=== PATIENT | male | born 1985 | race Two or more races ===

== ENCOUNTER 2016-06-26 08:45 | Emergency (ER) | payer SELFPAY ==
[2016-06-26 09:18] VITALS: RESP 15; TEMP 97.7
[2016-06-26] MEDS ORDERED: HYDROcodone-APAP 5 MG -325 MG TABLET PO ONE (09:28)
--- NOTE | 2016-06-26 09:34 | PDOC ---
Hand / Wrist Injury HPI - General Chief Complaint: Upper Extremity Problem/Injury Stated Complaint: RIGHT HAND/WRIST PAIN, S/P SURGERY 03/2017 Date Seen by Provider: 06/26/16 Time Seen by Provider: 09:29 Source: POSITIVE: Patient Exam Limitations: POSITIVE: No limitations Nurse's Notes Reviewed & Considered: Yes - Record Incomplete - History of Present Illness Have you received a tetanus shot in the past 10 years?: Yes Body Location Affected: REPORTS: Upper Extremity (R) Timing: REPORTS: Constant Duration: Unknown Severity: Moderate Context: REPORTS: Other (Status post ORIF right wrist) Location of Injury: REPORTS: Right, Wrist Quality: REPORTS: "Pain", Throbbing, Tenderness Modifying Factors: REPORTS: Movement, Rest Associated Symptoms: REPORTS: Loss of Power Any Prior Injuries Related to Current Complaint?: Yes (wrist fracture, ORIF right wrist.) - Patient Home Medications Home Medications: Home Medications Ibuprofen [Motrin Tab] 800 mg PO Q6H PRN 01/05/15 - Patient Allergies Allergies/Adverse Reactions: Allergies Allergy/AdvReac Type Severity Reaction Status Date / Time No Known Allergies Allergy Verified 06/26/16 08:52 Past Medical History - heen HEENT History: Denies History Cardiovascular History: Denies History Respiratory History: Denies History Additional Respiratory History: chronic tobacco abuse Gastrointestinal History: Other (please comment) Additional Gastrointestinal History: 2 yr hx on/off abd pain. denies dx but then states one Dr in [place] told him it was IBS Genitourinary History: Denies History Endocrine History: Denies History Musculoskeletal History: Denies History Prosthesis or Implant: No Neurological History: Denies History Blood Disorders: Denies History Psychiatric History: Denies History History of Sexually Transmitted Diseases: No Cancer History: Denies History In Past Year Been Physically Harmed or Verbally Threatened: No (PER PATIENT) History of MDRO: Unknown History of Other Communicable Diseases: No Tobacco Use: Current Every Day Smoker Alcohol Use: Occasionally Substance Use Type: None Previous Surgical History: Yes Type / Date of Surgery: RIGHT WRIST IN 03/2017 Anesthesia Reactions: No Malignant Hyperthermia: No Family History of Malignant Hyperthermia: No Significant Family History: No pertinent family hx ROS - Limitations ROS Limitations: No Limitations Constitution: REPORTS: Denies Symptoms Cardiovascular: REPORTS: Denies Cardiac Symptoms Respiratory: REPORTS: Denies Resp Symptoms Neurological: REPORTS: Denies Neuro Symptoms Gastrointestinal: REPORTS: Denies GI Symptoms Endocrine: REPORTS: Denies Symptoms Musculoskeletal: REPORTS: Joint Pain (Right wrist) Genitourinary: REPORTS: Denies Symptoms Eyes: REPORTS: Denies Symptoms ENT: REPORTS: Denies Symptoms Skin: REPORTS: Denies Skin Symptoms Lympathic: REPORTS: Denies Lympathic Symptoms Immunologic: POSITIVE: Denies Symptoms Psychiatric: POSITIVE: Denies Psych Symptoms Hand / Wrist Injury Exam - General Appearance General Appearance: POSITIVE: Alert, Cooperative, No Acute Distress, No Evidence of Trauma - Extremities Upper Extremity: POSITIVE: No Evidence of FB, Soft Tissue Tenderness, Bony Tenderness, Other (during on the anterior right wrist with tenderness along the distribution of the ulna.) Neurovascular / Tendon: POSITIVE: Sensation Normal, Motor Normal, Limited Extension, Limited Flexion Skin: POSITIVE: Warm, Dry - HEENT HEENT: POSITIVE: Head Inspection Nml, Eyes Inspection Nml, Ears Inspection Nml, Nose Inspection Nml, PERRL, EOMI - Respiratory / CVS Respiratory / CVS: POSITIVE: Chest Non Tender, No Ecchymosis, Breath Sounds Normal, No Respiratory Distress, Heart Sounds Normal, Regular Rate/Rhythm - Abdomen Abdomen: Soft: (All Quadrants), Normal Bowel Sounds: (All Quadrants), Denies Tenderness: (All Quadrants) Hand / Wrist Injury Progress - Results Reviewed by me Xrays/CTs/US Reviewed by me: Yes Discussed with Radiologist: Yes Lab Results Reviewed: Yes - Patient's Progress Pain Medication Addressed: POSITIVE: Yes Re-Examine Time: 10:49 Status: POSITIVE: Improved MDM / ED Course: Patient was examined, an Gibson wrap obtained. He received a Purcell by mouth. Assessment: Sprain status post ORIF right wrist. Plan: Discharge home patient receives a prescription and follow-up with physical therapy evaluation and treatment. He receives a prescription for Purcell No. 20. - Consult Counseled: POSITIVE: Patient, RE: Radiology Results, RE: DX, RE: Need for F/U Patient Care Time - Estimated PCT Patient Care Time (In Minutes): 20 Vital Signs - Recent Vital Signs Vital Signs: Vital Signs (Last 8 hours) Temp Pulse Resp BP Pulse Ox 06/26/16 08:45 97.7 F 100 15 126/83 98 - VS Reviewed Vital Signs Reviewed: Yes Discharge Clinical Impression: Right wrist pain Discharge Disposition: Discharged to Home Condition: Stable Patient Instructions Given at Discharge: Wrist Injury (ED)
--- NOTE | 2016-06-26 10:18 | DI ---
RIGHT HAND, 06/26/2016 8:55 AM: Clinical History: Right hand pain. Previous Exam: None at this facility. 3 views are submitted. There is no acute soft tissue, osseous, or joint abnormality. Reading: Normal right hand exam.
--- NOTE | 2016-06-26 10:18 | DI ---
RIGHT WRIST, 06/26/2016 8:55 AM: Clinical History: Right wrist pain. Previous Exam: 04/28/2015. 3 views are submitted. Since the previous exam, the patient has undergone ORIF for fracture of the di stal radius. Bony defects are visualized in the cortex of the distal radius along the dorsomedial asp ect of the distal radius. The remainder of the wrist examination is normal. Readin. There is no acute fracture or dislocation noted. 2. Status post ORIF of a fracture of the distal radius that has occurred since the previous exam of 04/28/2015.
== END 2016-06-26 11:03 | disposition home or self-care (01) ==
LOC: ER 08:45
DX: M25.531 Pain in right wrist (principal); M79.641 Pain in right hand; Z98.890 Other specified postprocedural states
CPT/HCPCS: 73110; 73130; 99282; 99283

== ENCOUNTER 2016-07-02 14:04 | Emergency (ER) | payer SELFPAY ==
--- NOTE | 2016-07-02 15:05 | PDOC ---
Hand / Wrist Injury HPI - General Chief Complaint: Upper Extremity Problem/Injury Stated Complaint: pain R wrist Date Seen by Provider: 07/02/16 Time Seen by Provider: 14:59 Source: POSITIVE: Patient Exam Limitations: POSITIVE: No limitations Nurse's Notes Reviewed & Considered: Yes - History of Present Illness Initial Comments: Patient comes today she complained of right wrist pain. Patient was seen here in the emergency department by me last week with the same. He was given a prescription to follow up with physical therapy prescription for Percocets. He is presently out of his medication wanting more. Of his chart reveals multiple visits for various pains and large amounts of narcotics being utilized. His surgeon in [place] has refused to provide any more narcotic pain medication for him. He states he is unable to follow up with physical therapy because he is presently unemployed and cannot afford physical therapy. Have you received a tetanus shot in the past 10 years?: Yes Body Location Affected: REPORTS: Upper Extremity (R) Timing: REPORTS: Constant Duration: Unknown Severity: Moderate Context: REPORTS: Fall Location of Injury: REPORTS: Right, Wrist Quality: REPORTS: "Pain" Modifying Factors: REPORTS: Movement, Nothing Relieves Any Prior Injuries Related to Current Complaint?: Yes (orif R wrist) - Patient Home Medications Home Medications: Home Medications Ibuprofen [Motrin Tab] 800 mg PO Q6H PRN 01/05/15 Hydrocodone Bit/Acetaminophen [Hydrocodon-Acetaminophen 5-325] 1 tab PO Q4H PRN 07/02/16 - Patient Allergies Allergies/Adverse Reactions: Allergies Allergy/AdvReac Type Severity Reaction Status Date / Time No Known Allergies Allergy Verified 07/02/16 14:24 Past Medical History - heen HEENT History: Denies History Cardiovascular History: Denies History Respiratory History: Denies History Additional Respiratory History: chronic tobacco abuse Gastrointestinal History: Other (please comment) Additional Gastrointestinal History: 2 yr hx on/off abd pain. denies dx but then states one Dr in [place] told him it was IBS Genitourinary History: Denies History Endocrine History: Denies History Musculoskeletal History: Denies History Prosthesis or Implant: No Neurological History: Denies History Blood Disorders: Denies History Psychiatric History: Denies History History of Sexually Transmitted Diseases: No Cancer History: Denies History History of MDRO: Unknown History of Other Communicable Diseases: No Alcohol Use: Occasionally Substance Use Type: None Previous Surgical History: Yes Type / Date of Surgery: RIGHT WRIST IN 03/2017 Anesthesia Reactions: No Malignant Hyperthermia: No Significant Family History: No pertinent family hx ROS - Limitations ROS Limitations: No Limitations Constitution: REPORTS: Denies Symptoms Cardiovascular: REPORTS: Denies Cardiac Symptoms Respiratory: REPORTS: Denies Resp Symptoms Neurological: REPORTS: Denies Neuro Symptoms Gastrointestinal: REPORTS: Denies GI Symptoms Endocrine: REPORTS: Denies Symptoms Musculoskeletal: REPORTS: Joint Pain Genitourinary: REPORTS: Denies Symptoms Eyes: REPORTS: Denies Symptoms ENT: REPORTS: Denies Symptoms Skin: REPORTS: Denies Skin Symptoms Lympathic: REPORTS: Denies Lympathic Symptoms Immunologic: POSITIVE: Denies Symptoms Psychiatric: POSITIVE: Denies Psych Symptoms Hand / Wrist Injury Exam - General Appearance General Appearance: POSITIVE: Alert, Cooperative, No Acute Distress, No Evidence of Trauma - Extremities Upper Extremity: POSITIVE: Normal Inspection, No Evidence of FB, Soft Tissue Tenderness Neurovascular / Tendon: POSITIVE: Sensation Normal, Motor Normal, No Vascular Compromise, Tendon Function Normal Skin: POSITIVE: Warm, Dry - HEENT HEENT: POSITIVE: Head Inspection Nml, Eyes Inspection Nml, Ears Inspection Nml, Nose Inspection Nml, PERRL, EOMI - Respiratory / CVS Respiratory / CVS: POSITIVE: No Respiratory Distress - Abdomen Abdomen: Denies Tenderness: (All Quadrants) Patient Care Time - Estimated PCT Patient Care Time (In Minutes): 10 Vital Signs - VS Reviewed Vital Signs Reviewed: Yes Discharge Clinical Impression: Chronic wrist pain Discharge Disposition: Discharged to Home Condition: Good Patient Instructions Given at Discharge: Wrist Injury (ED)
[2016-07-02 17:55] VITALS: RESP 16; TEMP 98.1
== END 2016-07-02 15:11 | disposition home or self-care (01) ==
LOC: ER 14:04
DX: M25.531 Pain in right wrist (principal); Z98.890 Other specified postprocedural states
CPT/HCPCS: 99282

== ENCOUNTER 2016-09-25 15:51 | Emergency (ER) | payer SELFPAY ==
[2016-09-25 16:06] VITALS: RESP 20; TEMP 98.5
[2016-09-25] MEDS ORDERED: Penicillin V Potassium Tab 500 MG TAB PO SCH ×2 (16:45)
--- NOTE | 2016-09-26 04:04 | PDOC ---
Sore Throat/Dental Pain HPI - General Chief Complaint: Nasal/Mouth Problem /Injury Stated Complaint: dental pain Date Seen by Provider: 09/25/16 Time Seen by Provider: 16:05 Source: POSITIVE: Patient Exam Limitations: POSITIVE: No limitations Nurse's Notes Reviewed & Considered: Yes - History of Present Illness Initial Comments: The patient is a 30-year-old male. He complains of a 2 day history of dental pain. Complains of pain to his first and second left upper molars and his second right lower molar. He states he is intolerant of tramadol and he states that Toradol has not relieved his pain in the past. He smokes a half a pack of cigarettes per day. No fevers. No chills. No difficulty breathing or swallowing. No throat pain. No facial swelling. Location: Dental (Lower) Timing: REPORTS: Constant Duration: >24 hours (2 days) Severity: Moderate Quality: REPORTS: "Pain" Context: DENIES: Foreign Body, Ingestion, Fractured Tooth, Other Modifying Factors: worse with: Rest, Exertion, Coughing, OTC Cough Expectorant, OTC Cough Suppressant, Deep Breathing, Lying Flat, Heat, Cold, Other Associated Symptoms: REPORTS: Toothache (See diagram). DENIES: Unable to Swallow, Fever, Chills, Runny Nose, Congestion, Facial Pain, Earache, Swollen Jaw, Swollen Face, Sore Throat, Jaw Pain, Cough, Swollen Glands, Other Similar Symptoms Previously: No Recently seen/treated/hospitalized: No Any Prior Injuries Related to Current Complaint?: No - Patient Home Medications Home Medications: Home Medications Ibuprofen 800 mg PO Q6H PRN 09/25/16 Penicillin V Potassium 250 mg PO Q6H #40 tab 09/25/16 - Patient Allergies Allergies/Adverse Reactions: Allergies Allergy/AdvReac Type Severity Reaction Status Date / Time tramadol AdvReac Mild VOMITING Verified 09/25/16 15:58 Past Medical History - heen HEENT History: Denies History Cardiovascular History: Denies History Respiratory History: Denies History Additional Respiratory History: chronic tobacco abuse Gastrointestinal History: Other (please comment) Additional Gastrointestinal History: 2 yr hx on/off abd pain. denies dx but then states [place] told him it was IBS Genitourinary History: Denies History Endocrine History: Denies History Musculoskeletal History: Denies History Prosthesis or Implant: No Additional Musculoskeletal History: 05/15/16 3 INCH PLATE AND 10 SCREWS RT WRIST Neurological History: Denies History Blood Disorders: Denies History Psychiatric History: Denies History History of Sexually Transmitted Diseases: No Cancer History: Denies History In Past Year Been Physically Harmed or Verbally Threatened: No History of MDRO: Unknown History of Other Communicable Diseases: No Tobacco Use: Former Smoker Alcohol Use: Rarely Substance Use Type: None Previous Surgical History: Yes Type / Date of Surgery: ORIF RIGHT WRIST Anesthesia Reactions: No Malignant Hyperthermia: No Significant Family History: No pertinent family hx Past Medical History Reviewed: Reviewed - No Changes ROS - Limitations ROS Limitations: No Limitations Constitution: REPORTS: Denies Symptoms Cardiovascular: REPORTS: Denies Cardiac Symptoms Respiratory: REPORTS: Denies Resp Symptoms Neurological: REPORTS: Denies Neuro Symptoms Gastrointestinal: REPORTS: Denies GI Symptoms Endocrine: REPORTS: Denies Symptoms Musculoskeletal: REPORTS: Denies MS Symptoms Genitourinary: REPORTS: Denies Symptoms Eyes: REPORTS: Denies Symptoms ENT: REPORTS: Dental Pain Skin: REPORTS: Denies Skin Symptoms Lympathic: REPORTS: Denies Lympathic Symptoms Immunologic: POSITIVE: Denies Symptoms Psychiatric: POSITIVE: Denies Psych Symptoms Sore Throat/Dental Pain Exam - General Appearance General Appearance: REPORTS: Alert, Cooperative, No Acute Distress, No Evidence of Trauma - HEENT Head / Face: POSITIVE: Atraumatic, Normal Inspection, No Facial Swelling Eyes: POSITIVE: Inspection Normal, PERRL, EOM's Intact, Eyelids Uninjured, Conjunctivae Uninjured, No Nystagmus, No Globe Trauma, Sclera Normal, Normal Corneal Inspection Ears: POSITIVE: Ears Normal Inspection, TM Normal Inspection, Auricle Normal, External Canal Normal Nose: POSITIVE: Inspection Normal, No Apparent Trauma, Nares Normal, No CSF Leak Oropharynx: POSITIVE: External Inspection Nml, Pharynx Inspect. Nml, Airway Intact, Voice Normal, Moist Mucous Membranes, No Oral Injury, Lips Normal, No Drooling, No Thrush, Normal Gag Reflex. NEGATIVE: Gums Normal (Severe pyorrhea and gingivitis) Neck: POSITIVE: Supple, Normal Inspection, Non Tender Dental: POSITIVE: Dental Caries (Diffuse dental caries. Very poor dental hygiene and oral hygiene), Dental Tenderness (Discomfort on percussion over the left upper molars and the right lower second molar with some swelling of the gingiva at the base of these teeth.), Widespread Dental Decay. NEGATIVE: Dental Injury, Dental Malocclusion, Meningismus, Trismus - Respiratory Respiratory: REPORTS: No Respiratory Distress, Breath Sounds Normal, No Pleuritic Chest Pain, Speaks Full Sentences, No Pain on Inspiration - Cardiovascular Cardiovascular: REPORTS: Regular Rate and Rhythm, Heart Sounds Normal, Equal Pulses, Strong Pulses Peripheral Pulses: Radial (R): 2+, Radial (L): 2+ - Abdomen Abdomen: Soft: (All Quadrants), Normal Bowel Sounds: (All Quadrants), Denies Tenderness: (All Quadrants), No Splenomegaly: (All Quadrants), No Hepatomegaly: (All Quadrants), No Guarding: (All Quadrants), No Rebound: (All Quadrants), No Palpable Pulse: (All Quadrants), No Palpabale Mass: (All Quadrants), No Distention: (All Quadrants), No Rigidity: (All Quadrants) - Extremities Extremity: Non-Tender: (All Extremities), Normal ROM: (All Extremities), Normal Inspection: (All Extremities) - Skin Skin: REPORTS: Intact, Normal For Race, Warm, Dry, No Rash - Neurological / Psychological Neurological: POSITIVE: Oriented X3, cement mason highways and streets Normal As Tested, Motor Normal, Sensation Normal, 5, 6 Images - Dental Dental: 1 - Pain on percussion 2 - Pain on percussion Sore Throat/Dental Progress - Patient's Progress Pain Medication Addressed: POSITIVE: Yes (Patient declined Toradol. Recommended Advil or Tylenol) School/Work Release Addressed: POSITIVE: Not Applicable Re-Examine Time:: 16:30 Status: POSITIVE: Unchanged - Consult Counseled: POSITIVE: Patient, RE: DX, RE: Need for F/U Patient Care Time - Estimated PCT Patient Care Time (In Minutes): 23 Vital Signs - VS Reviewed Vital Signs Reviewed: Yes Discharge Clinical Impression: Dental caries, Dental abscess Discharge Disposition: Discharged to Home Condition: Good Prescriptions / Orders: Penicillin V Potassium 250 mg PO Q6H #40 tab Patient Instructions Given at Discharge: Dental Abscess (ED), Toothache (ED) Additional Instructions: You have very poor oral hygiene and multiple cavities. Your pain is likely coming from an abscess forming beneath your cavities called para apical abscesses. Please stop smoking, as smoking is very bad for your dental health. Pen-Vee K, one every 6 hours for 10 days. Tylenol or Advil for discomfort. I do not prescribe narcotics from the emergency room for dental pain. Follow- up with your dentist as soon as possible. Follow Up With: NONE,NONE [Primary Care Provider] - (Instructions as above. Follow-up with your dentist. Return as necessary.)
== END 2016-09-25 16:35 | disposition home or self-care (01) ==
LOC: ER 15:51
DX: K04.7 Periapical abscess without sinus (principal); K02.9 Dental caries, unspecified
CPT/HCPCS: 99282

== ENCOUNTER → 2016-11-21 | Outpatient (CLI) | payer SELFPAY ==
--- NOTE | 2016-11-21 15:25 | DI ---
XR L-SPINE 2-3 VW,11/21/2016 1:55 PM: Clinical History: Acute low back pain. Previous Exam: None at this facility. Findings: AP and lateral views of the lumbar spine are obtained, and demonstrate anatomic alignment without fra ctures. Vertebral body height is preserved. Intervertebral disc height is also preserved. A nonobstructive bowel gas pattern is seen. There are no pathologic calcifications seen. Impression: Normal lumbar spine.
== END ==
LOC: MOB RAD 13:58
PROVIDERS: ATTEND Physician Assistant
DX: M54.5 Low back pain (principal); Z72.0 Tobacco use
CPT/HCPCS: 72100